=== PATIENT | male | born 1990 | race Caucasian/White ===

== ENCOUNTER 2023-09-01 10:17 | Outpatient (OUT) | payer OTHER, SELFPAY ==
--- NOTE | 2023-09-01 11:06 | XR_ITS ---
The [address] [address] Patient Name: SAIRA BROWN MRN: [id number] date: 1990 Sex: M Assigned Patient Location: [facility] Current Patient Location: [facility] Accession/Order Number: [id number] Exam Date: 09/01/2023 11:00 Report Date: 09/01/2023 11:46 At the request of: PARIS PHILLIPS Procedure: XR chest 2V EXAM: XR chest 2V HISTORY: Preop exam COMPARISON: None. TECHNIQUE: PA and lateral views of the chest. FINDINGS: The cardiomediastinal silhouette is normal. No focal consolidation is identified. There is no pneumothorax. No pleural effusion is noted. The osseous structures are intact. XR/XR chest 2V IMPRESSION: No acute cardiopulmonary process. Electronically authenticated by: CINTHIA BOLES Date: 09/01/2023 11:46
--- NOTE | 2023-09-01 11:13 | P.GSHP_ITS ---
History of Present Illness History of Present Illness Chief complaint: right inguinal hernia Narrative: Patient presents for preadmission testing. The patient reports a right-sided hernia that he has had for approximately five years. He states it worsened over the past few months and is getting larger. He states he's able to reduce the hernia, it is more nagging than painful. He denies nausea, vomiting, abdominal pain, fever, or any other complaints. Review of Systems ROS Narrative REVIEW OF SYSTEMS: Negative except as stated in HPI, ten or more systems reviewed. Constitutional: No fever , chills, weakness ENT: No sore throat or epistaxis Cardiovascular: No edema, chest pain, palpitations, or activity intolerance Respiratory: No shortness of breath, cough, or wheezing Musculoskeletal: No joint pain or swelling Gastrointestinal: No abdominal pain, constipation, diarrhea, or vomiting Genitourinary: No dysuria or hematuria Neurological: No numbness, tingling, weakness, or headache Psychiatric: No mood changes PFSH PFSH Medical History (Updated 09/01/23 @ 11:02 by Ayleen Cardenas NP) Electronic cigarette use ?Z78.9 - Other specified health status (ICD-10) COVID-19 ?U07.1 - COVID-19 (ICD-10) Inguinal hernia ?K40.90 - Unilateral inguinal hernia, without obstruction or gangrene, not specified as recurrent (ICD-10) Surgical History (Updated 09/01/23 @ 11:02 by Ayleen Cardenas NP) History of appendectomy (2001) ?Z90.49 - Acquired absence of other specified parts of digestive tract (ICD- 10) Family History (Updated 09/01/23 @ 11:02 by Ayleen Cardenas NP) Other Anemia Dementia Social History (Updated 09/01/23 @ 10:42 by Ayleen Cardenas NP) Within the past year, how often did you have a drink containing alcohol: 2-4 times a month Do you use any of these nicotine containing products: vaping products Non-prescribed substance use: cannabis (any form) 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 Highest level of school completed/degree received: Associate degree: academic program Meds Home Medications and Allergies Home Medications ?Medication ?Instructions ?Recorded ?Confirmed ?Type fertility vitamin PO 09/01/23 History Allergies Allergy/AdvReac Type Severity Reaction Status Date / Time Penicillins Allergy Rash Verified 09/01/23 10:40 Exam Narrative Exam Narrative: Constitutional: Awake, alert, comfortable, well-appearing, nontoxic, interactive, vital signs as charted Head: Normocephalic, atraumatic Neck: Supple, normal appearance, normal range of motion, no meningeal signs, no lymphadenopathy Respiratory: No respiratory distress, breath sounds clear Cardiovascular: Regular rate and rhythm, strong and regular heart tones Abdomen: Nontender, normal bowel sounds, soft, no CVA tenderness Musculoskeletal: Normal gait, no swelling or edema Skin: No rashes or induration, no lesions, only visible skin inspected Neuro: No neurological deficits, normal sensation Psychiatric: Oriented ?3, normal affect Assessment and Plan Assessment and Plan (1) Inguinal hernia: Plan Robotic-assisted laparoscopic right inguinal hernia repair with mesh, possible bilateral scheduled with Dr. Curiel 09/13/2023.
== END 2023-09-01 10:18 | disposition home or self-care (01) ==
LOC: PST 10:20
PROVIDERS: Visit Provider Surgery
DX: Z01.812 Encounter for preprocedural laboratory examination (principal); Z01.818 Encounter for other preprocedural examination; K40.90 Unilateral inguinal hernia, without obstruction or gangrene, not specified as recurrent
CPT/HCPCS: 71046; G0463

== ENCOUNTER 2023-09-13 06:36 | Day surgery (SDC) | payer OTHER, SELFPAY ==
[2023-09-01 11:08] VITALS: BP 124/75; PULSE 83; TEMP 36.3; O2SAT 95; BMI 25.6
[2023-09-13] VITALS (11 sets, daily range): BP systolic 103–119; BP diastolic 55–87; PULSE 55–93; TEMP 36.1–36.5; O2SAT 96–100; BMI 25.4
[2023-09-13] MEDS: LACTATED RINGER'S SOLUTION 1,000 ML 50 ML IV (07:01)
[2023-09-13] MEDS: CLINDAMYCIN PHOSPHATE/D5W 600 MG/50 ML PIGGYBACK 100 MG IV (07:42)
[2023-09-13] MEDS: BUPIVACAINE HCL 0.25% PF 25 MG/10 ML VIAL INJ (08:18)
[2023-09-13] MEDS: BUPIVACAINE LIPOSOME/PF 266 MG/13.3 ML VIAL INJ (08:18)
[2023-09-13] MEDS: 0.9 % SODIUM CHLORIDE 10 ML SYRINGE - SALINE FLUSH 20 ML INJ (08:18)
[2023-09-13] MEDS: LACTATED RINGER'S SOLUTION 1,000 ML 1000 ML IV (09:18)
--- NOTE | 2023-09-13 11:01 | PC.NURSE ---
PATIENT HAD A TAP BLOCK BY DR PHILLIPS PRIOR TO STARTING WITH CASE
--- NOTE | 2023-09-13 15:37 | PM.GSPRC ---
Date of procedure: 09/13/23 Indications for Procedure: symptomatic Right inguinal hernia Pre-op diagnosis: Right inguinal hernia, symptomatic Post-op diagnosis: same as pre-op Procedure: Procedures: 1. Robotic right inguinal hernia repair with 10 x 15 cm ProGrip mesh, 2. TAP block Robotic inguinal hernia repair The patient was brought to the operating room and placed supine on the operating room table. Cardiopulmonary monitoring was initiated. General anesthesia was induced without any complication. A time-out was performed.? Pre-operative antibiotics were given. EPC cuffs were on the lower extremities. Both arms were tucked. The abdomen was prepped and draped in the usual sterile fashion. The abdomen was entered approximately 12-14 cm distal to the xyophoid process and to the right of the midline. To do this a skin incision was made. A 5mm 0 degree laparoscope was then introduced using an optical access trocar. Pneumoperitoneum was then established through this trocar. Once pneumoperitoneum was created 2 additional 8 mm DA John ports were placed under direct visualization in the mid and left abdomen along the same line just superior to the umbilicus. The 5mm optiview port was then upsized to a 8mm robotic port under direct visualization.? Prior to proceeding with the operation, an intraoperative TAP block was performed. ?Under visualization with the laparoscope, a needle was inserted percutaneously and, confirming that I was in the right plane, 30 mL of a mixture of Ropivacaine and Decadron were injected on both sides for a total of 60 ml. ?Good separation of the muscle planes was seen bilaterally indicating good placement of the anesthetic solution. The robot was then docked and a 30 degree robotic scope was placed into the abdomen.? Both inguinal regions were inspected and the median umbilical ligament, medial umbilical ligaments, and lateral umbilical folds were identified.? A right indirect inguinal hernia was noted.? There was no left inguinal hernia on inspection. The peritoneum on the right side was incised with scissor electrocautery along a line 2 cm above the superior edge of the hernia defect, extending from the medial umbilical ligament to the anterior superior iliac spine. ?The peritoneal flap was mobilized inferiorly using blunt dissection.? Blunt dissection was down from the ASIS to the lateral edge of the internal ring.? The inferior epigastric vessels were exposed and kept superior to the dissection planes at all times during the operation.? Medial dissection was done until Brent's ligament was exposed.? The cord structures and hernia sac were identified. The patient had a significant hernia sac that was due to the chronicity and size of his hernia. The Cord structures were preserved during the dissection and reduction of hernia sac.? The cord structures were dissected free from the hernia sac circumferentially. The hernia sac was large and kept due to its size and chronic scarring. Hemostasis was maintained. A Critical view of the ysabel-pectineal orifice was achieved. The right testicle was confirmed to be in the scrotum. Once dissection was completed, a 15 cm x 9 cm piece of [employer] Progrip mesh was rolled double scroll and placed within the peritoneum flap.? The mesh was centered over the deep inguinal ring and unrolled to cover direct and indirect hernia spaces. It was noted to lay flat, in good position and without crimpage. The peritoneum was closed with running 2-0 V lock suture. The intra-abdominal cavity was grossly inspected there were no signs of bleeding or any other injury. The robot was undocked without complications. The pneumoperitoneum was evacuated through the remaining robotic ports and the ports removed. The port sites were closed with 4-0 Monocryl suture and then skin glue material was applied. The patient tolerated the procedure well and was transferred to the recovery room in satisfactory condition. All instruments, sharps and sponges were reported accounted for. Findings: large right indirect inguinal hernia Anesthesia: HAJA Surgeon: Randall Curiel Procedure Summary: 1. Robotic right inguinal hernia repair with 10 x 15 cm ProGrip mesh, 2. TAP block Estimated blood loss (mL): 5 Specimens: none Complications: No Pathology: none sent Condition: stable Disposition: PACU
== END 2023-09-13 11:45 | disposition home or self-care (01) ==
PROVIDERS: Visit Provider Surgery
PROC: (CPT 840; principal; 2023-09-13 07:30)
DX: K40.90 Unilateral inguinal hernia, without obstruction or gangrene, not specified as recurrent (principal); Z86.16 Personal history of COVID-19; Z90.49 Acquired absence of other specified parts of digestive tract; F17.290 Nicotine dependence, other tobacco product, uncomplicated
CPT/HCPCS: 49650; C1781; J1094; J2704